=== PATIENT | male | born 1970 | race Caucasian/White ===

== ENCOUNTER 2023-06-28 10:18 | Emergency (ER) | payer MEDICAID ==
[~2023-06-28] VITALS: Ht 175.3 cm; Wt 117.3 kg
[2023-06-28 10:21] VITALS: TEMP 98
[2023-06-28 10:42] LABS: BILIRUBIN,URINE SMALL (Neg); CLARITY,URINE SLIGHTLY CLOUDY (Clear); GLUCOSE, URINE NEGATIVE (Neg); KETONES,URINE NEGATIVE (Neg); LEUKOCYTE ESTERASE ,URINE NEGATIVE (Neg); OCCULT BLOOD,URINE LARGE (Neg); PROTEIN,URINE 100 mg/dl (Neg)
[2023-06-28 10:48] LABS: COLOR,URINE DARK YELLOW (Yellow); UA COLLECTION TYPE CLN CATCH MIDSTREAM
[2023-06-28 10:49] LABS: NITRITES, URINE NEGATIVE (Neg)
[2023-06-28 10:51] LABS: RBC,URINE TNTC /HPF (0-2)
[2023-06-28 10:54] LABS: BACTERIA,URINE FEW /HPF (Neg); MUCUS STRANDS NONE SEEN /LPF (Neg); SQUAMOUS EPITHELIAL CELL,UR FEW /LPF (FEW)
[2023-06-28 10:55] LABS: FINE GRANULAR CAST 0-3 /LPF (NEGATIVE)
[2023-06-28] MEDS ORDERED: ketorolac tromethamine 15mg/ml inj. IM ONE (11:05)
[2023-06-28 12:04] LABS: BASOPHILS # (AUTO) 0.1 X10'3 (0-0.2); BASOPHILS % (AUTO) 0.3 % (0-1); EOSINOPHILS % (AUTO) 0.1 % (0-6); HEMATOCRIT 48.4 % (42.0-52.0); HEMOGLOBIN 16.5 g/dl (14.0-17.9); LYMPHOCYTES # (AUTO) 1.2 X10'3 (1.1-4.8); LYMPHOCYTES % (AUTO) 5.6 % (21-51); MEAN CORPUSCULAR HEMOGLOBIN 29.9 PG (27.0-31.0); MEAN CORPUSCULAR HGB CONC 34.1 g/dL (33.0-36.5); MEAN CORPUSCULAR VOLUME 87.6 FL (78-98); MEAN PLATELET VOLUME 8.2 FL (7.4-10.4); MONOCYTES % (AUTO) 4.8 % (2-12); NEUTROPHILS # (AUTO) 18.5 X10'3 (1.8-7.7); NEUTROPHILS % (AUTO) 89.2 % (42-75); PLATELET COUNT 278 X10'3 (140-440); RED BLOOD COUNT 5.53 X10'6 (4.70-6.10); RED CELL DISTRIBUTION WIDTH 14.5 % (11.5-14.5); WHITE BLOOD COUNT 20.8 X10'3 (4.5-11.0)
[2023-06-28] MEDS: ketorolac trometh inj. 60 MG/2 ML VIAL IM ONE (12:14)
[2023-06-28 12:48] LABS: ALANINE AMINOTRANSFERASE 38 U/L (12-78); ALBUMIN 3.7 G/DL (3.4-5.0); ALBUMIN/GLOBULIN RATIO 0.9 (1.1-1.5); ALKALINE PHOSPHATASE 133 IU/L (46-116); ANION GAP 12 (8-16); ASPARTATE AMINO TRANSFERASE 18 U/L (10-37); BILIRUBIN,TOTAL 0.8 MG/DL (0.1-1.0); BLOOD UREA NITROGEN 20 MG/DL (7-18); BUN/CREATININE RATIO 13.5 (10.0-20.0); CALCIUM 8.5 MG/DL (8.5-10.1); CHLORIDE 104 MMOL/L (99-107); CREATININE 1.48 MG/DL (0.60-1.10); GLUCOSE 148 MG/DL (70-104); LIPASE 25 U/L (16-77); POTASSIUM 3.8 MMOL/L (3.5-5.1); SODIUM 138 MMOL/L (135-145); TOTAL CARBON DIOXIDE 21.9 MMOL/L (24-32); TOTAL PROTEIN 7.7 G/DL (6.4-8.2); eCRCL 57 ML/MIN; eGFR 50 ML/MIN
[2023-06-28 16:03] VITALS: PULSE 68
[2023-06-28] MEDS ORDERED: ONDA4TAB12 PO (16:03)
[2023-06-28] MEDS ORDERED: HYDR-3965 PO (16:03)
[2023-06-28] MEDS ORDERED: DICY20TA17 PO (16:03)
[2023-06-28] MEDS ORDERED: FLO0.4C PO (16:13)
[2023-06-28 16:15] VITALS: BP 144/86; RESP 18; O2SAT 97
== END 2023-06-28 16:18 | disposition home or self-care (01) ==
LOC: ER 10:18
DX: N20.0 Calculus of kidney (principal); K52.9 Noninfective gastroenteritis and colitis, unspecified; Z79.899 Other long term (current) drug therapy
CPT/HCPCS: 36415; 74176; 80053; 81001; 83690; 85025; 87088; 96372; 99285; J1885